=== PATIENT | male | born 1990 | race Caucasian/White ===

== ENCOUNTER 2020-02-06 12:24 | Emergency (ER) | payer BC, SELFPAY ==
[2020-02-06 12:27] VITALS: BP 138/89; PULSE 95; RESP 16; O2SAT 99; BMI 34.3
[2020-02-06 12:39] VITALS: BP 154/92; PULSE 90; RESP 12; O2SAT 99
[2020-02-06 12:40] VITALS: O2SAT 99
--- NOTE | 2020-02-06 12:45 | XRR_ITS ---
PROCEDURE INFORMATION: Exam: XR Chest, 1 View Exam date and time: 02/06/2020 12:47 PM Age: 29 years old Clinical indication: Chest pain; Additional info: Cp TECHNIQUE: Imaging protocol: XR of the chest Views: 1 view. COMPARISON: No relevant prior studies available. FINDINGS: Lungs: No acute airspace disease. Chronic granulomatous disease. Pleural space: No pleural effusion. Heart/Mediastinum: No cardiomegaly. Bones/joints: Unremarkable. XR/XR chest 1V portable [id number] IMPRESSION: No acute airspace or pleural disease.
--- NOTE | 2020-02-06 12:45 | ECG_ITS ---
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 Measurements Intervals [place] Rate: 89 P: 44 SD: 173 QRS: 32 QRSD: 106 T: 29 QT: 365 QTc: 444 Interpretive Statements SINUS RHYTHM No previous ECG available for comparison Electronically Signed On 02-07-2020 9:25:28 GAS LEAK TESTER by Lucila Loja M.D. [id number]
--- NOTE | 2020-02-06 12:45 | CTR_ITS ---
PROCEDURE INFORMATION: Exam: CT Head Without Contrast Exam date and time: 02/06/2020 12:47 PM Age: 29 years old Clinical indication: Syncope and collapse TECHNIQUE: Imaging protocol: Computed tomography of the head without contrast. Radiation optimization: All CT scans at this facility use at least one of these dose optimization techniques: automated exposure control; mA and/or kV adjustment per patient size (includes targeted exams where dose is matched to clinical indication); or iterative reconstruction. COMPARISON: No relevant prior studies available. RADIATION DOSE METRICS: Total DLP (mGy-cm): 758.68 FINDINGS: Brain: No acute post-traumatic brain injury. Mild symmetric prominence of the cortical sulci relative to the stated patient age. Normal ho-white matter differentiation. No acute cortical infarct, mass effect, or intracranial hemorrhage. Cerebral ventricles: normal configuration of the ventricles. Bones/joints: No acute calvarial pathology. Paranasal sinuses: Opacification of a right ethmoidal air cell. Mastoid air cells: No mastoid effusion. Soft tissues: No significant scalp hematoma. CT/CT head wo con* [id number] IMPRESSION: No acute post-traumatic brain injury. Radiation Dose CTDIVOL = (mGy): DLP = 758.68 (mGy-cm)
[2020-02-06 12:48] LABS: Glucose Point of Care 78 mg/dL (70-110)
[2020-02-06] MEDS: sodium chloride 0.9% 1,000 ML 999 ML IV (12:53)
[2020-02-06] MEDS: fentaNYL 50 mcg/mL INJ 2mL 100 MCG IVP (12:53)
[2020-02-06] MEDS: ondansetron 2 mg/ML SDV 2 mL 4 MG IVP (12:53)
[2020-02-06] MEDS: fentaNYL 50 mcg/mL INJ 2mL IVP (13:08)
--- NOTE | 2020-02-06 13:30 | ED_ITS ---
HPI - Syncope General: Chief Complaint: Syncope Stated Complaint: SYNCOPE Time Seen by Provider: 02/06/20 12:26 History of Present Illness: HPI narrative: 29-year-old healthy male presents after a syncopal episode. 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 He sat down, and then lie down, but upon attempting to get up after hydration, had a syncopal episode. He evidently maintained breathing and a pulse the entire time. As he came around he was slightly confused, and his headache was worse. He presents with a headache, some reproducible chest discomfort, and fatigue. There is no point was noticed any seizure activity. MD complaint: loss of consciousness Onset (ago): minute(s) -: second(s) Description of event: other Prodromal symptoms: headache and lightheaded Witnessed: Yes - by Bystander Context: during exertion Injuries sustained associated with event: none Associated symptoms: Reports chest pain, headache(s), lightheadedness and nausea; Deny fever(s) or short of breath Review of Systems Const: Denies: fever(s) Eyes: Denies: change in vision or blurry vision ENMT: Denies: odynophagia, dental pain, change in hearing, post nasal drip or sinus pain Card: Reports: chest pain and lightheadedness Resp: Denies: dyspnea or wheezing GI: Reports: nausea : Denies: difficulty urinating, dysuria or hematuria Musc: Denies: neck pain, back pain, joint redness or joint warmth Skin/Breast: Denies: rash or erythema Neuro: Reports: headache(s) Psych: Denies: anxiety Physical Exam Const: COMMON NORMALS: alert GENERAL APPEARANCE: well developed ORIENTATION/CONSCIOUSNESS: Yes oriented to person, Yes oriented to place and Yes oriented to time HENMT: COMMON NORMALS: normocephalic, external ears normal and Normal external nose present HEAD & SCALP: normocephalic FACE & SINUS: normal facial exam NOSE: Normal external nose present and No nasal discharge present EXTERNAL EAR: Yes external ears normal TEETH & GINGIVA: no abnormal tooth and associated gingiva Eye: COMMON NORMALS: Equal, round and reactive pupils present, EOMs intact bilaterally and conjunctivae normal EYELID: eyelids normal CONJUNCTIVA: Yes conjunctivae normal PUPIL: Yes Equal, round and reactive pupils present Neck/C-Spine: GENERAL: No tracheal deviation Chest: COMMONS NORMALS: normal inspection of the chest CHEST: Yes tenderness Resp: COMMON NORMALS: clear to auscultation bilaterally EFFORT & INSPECTION: No tachypneic, No respiratory distress, No retractions, No uses accessory muscles and No tracheal deviation AUSCULTATION: clear to auscultation bilaterally, no rhonchi, no wheezes and lung sounds not diminished Cardio: COMMON NORMALS: regular rate and regular rhythm RATE: regular rate RHYTHM: regular rhythm HEART SOUNDS: no murmurs PERIPHERAL PULSES: radial pulses present GI: INSPECTION: No abdominal distension AUSCULTATION: No Hyperactive bowel sounds present and No Hypoactive bowel sounds present PALPATION: No Guarding due to palpation present (GI) and No Rigid due to palpation PERCUSSION: no dullness to percussion and no tympanic to percussion Neuro: SENSORIUM/ORIENTATION: Yes alert, Yes oriented to person, Yes oriented to place and Yes oriented to time CRANIAL NERVES: Yes CN normal except as noted SPEECH: speech normal MOTOR EXAM: Motor abnormalities not present Psych: COMMON NORMALS: mental status grossly normal Skin: COMMON NORMALS: no rashes or lesions noted GENERAL SKIN EXAM: no rashes or lesions noted Course Vital Signs: Vital signs: Vital Signs Pulse Rate 74 02/06/20 14:00 Respiratory Rate 15 02/06/20 14:00 Blood Pressure 137/87 02/06/20 14:00 Pulse Oximetry 100 02/06/20 14:00 MDM - Syncope MDM Narrative: Medical decision making narrative: Syncope x1. Headache following. Headache improved down to 1 now after small dose of fentanyl, and some Toradol. Head CT is negative. EKG is normal with a normal axis, and a normal rate of 90. Troponin is 9. His bicarbonate level however is 18. His CK is minimally elevated. He is received 2 L of fluid here and is feeling better. He knows to return for any concerning symptoms. Lab Data: Labs: Lab Results 02/06/20 02/06/20 02/06/20 Range/Units 12:35 12:35 12:35 WBC 10.7 H (4.0-10.0) 10^3/ uL RBC 5.47 H (4.1-5.3) 10^6/u L Hgb 15.8 (11.7-16.6) g/dL Hct 46.0 (42.0-52.0) % MCV 84.1 (80-94) fL MCH 28.9 (28.0-34.0) pg MCHC 34.3 (30.0-36.0) g/dL RDW 11.5 L (12.1-15.1) % Plt Count 306 (130-400) 10^3/c mm MPV 11.1 H (7.4-10.4) fL Neut % (Auto) 71.1 % Lymph % (Auto) 20.8 % [place] % (Auto) 6.6 % Eos % (Auto) 0.3 % Baso % (Auto) 0.5 % Neut # (Auto) 7.65 (1.8-7.7) 10^3/u L Lymph # (Auto) 2.2 (0.8-4.8) 10^3/u L [place] # (Auto) 0.7 (0.2-0.9) 10^3/u L Eos # (Auto) 0.0 (0.0-0.8) 10^3/u L Baso # (Auto) 0.1 (0.0-0.1) 10^3/u L Nucleated RBC % (a uto) 0 % Nucleated RBCs # 0.0 /100WBC PT 12.90 (12.1-14.9) SECO NDS INR 0.94 (0.8-1.2) Sodium 140 (136-145) mmol/L Potassium 4.0 (3.5-5.1) mmol/L Chloride 101 (98-107) mmol/L Carbon Dioxide 18 L (22-29) mmol/L Anion Gap 25.0 H (5-19) BUN 13 (6-20) mg/dL Creatinine 1.0 (0.7-1.2) mg/dL GFR Calculation 89.0 L (90-130) mL/min Glucose 98 (65-115) mg/dL POC Glucose (70-110) mg/dL Calculated Osmolal ity 290 (285-295) mOsm/k g Calcium 10.3 (8.5-10.5) mg/dL Total Bilirubin 0.5 (0.15-1.2) mg/dL AST 25 (0-40) U/L ALT 18 (0-41) U/L Alkaline Phosphata se 89 (40-130) IU/L Creatine Kinase 319 H (39-308) U/L Troponin T Baselin e (0-15) ng/L Total Protein 7.1 (6.6-8.7) g/dL Albumin 4.9 (3.5-5.2) g/dL Globulin 2.2 (1.3-4.6) g/dL 02/06/20 02/06/20 Range/Units 12:35 12:44 WBC (4.0-10.0) 10^3/ uL RBC (4.1-5.3) 10^6/u L Hgb (11.7-16.6) g/dL Hct (42.0-52.0) % MCV (80-94) fL MCH (28.0-34.0) pg MCHC (30.0-36.0) g/dL RDW (12.1-15.1) % Plt Count (130-400) 10^3/c mm MPV (7.4-10.4) fL Neut % (Auto) % Lymph % (Auto) % [place] % (Auto) % Eos % (Auto) % Baso % (Auto) % Neut # (Auto) (1.8-7.7) 10^3/u L Lymph # (Auto) (0.8-4.8) 10^3/u L [place] # (Auto) (0.2-0.9) 10^3/u L Eos # (Auto) (0.0-0.8) 10^3/u L Baso # (Auto) (0.0-0.1) 10^3/u L Nucleated RBC % (a uto) % Nucleated RBCs # /100WBC PT (12.1-14.9) SECO NDS INR (0.8-1.2) Sodium (136-145) mmol/L Potassium (3.5-5.1) mmol/L Chloride (98-107) mmol/L Carbon Dioxide (22-29) mmol/L Anion Gap (5-19) BUN (6-20) mg/dL Creatinine (0.7-1.2) mg/dL GFR Calculation (90-130) mL/min Glucose (65-115) mg/dL POC Glucose 78 (70-110) mg/dL Calculated Osmolal ity (285-295) mOsm/k g Calcium (8.5-10.5) mg/dL Total Bilirubin (0.15-1.2) mg/dL AST (0-40) U/L ALT (0-41) U/L Alkaline Phosphata se (40-130) IU/L Creatine Kinase (39-308) U/L Troponin T Baselin e 9 (0-15) ng/L Total Protein (6.6-8.7) g/dL Albumin (3.5-5.2) g/dL Globulin (1.3-4.6) g/dL Discharge Plan Discharge Patient Disposition: Home Clinical Impression: Dehydration Syncope Qualifiers: Syncope type: unspecified Qualified Code(s): R55 - Syncope and collapse Rhabdomyolysis Qualifiers: Rhabdomyolysis type: non-traumatic Qualified Code(s): M62.82 - Rhabdomyolysis Condition: Stable Discharge Orders: Discharge Order (Routine); Ordered 02/06/20 Ordered By: Russell Evans Referrals: Wander Ac DO [Primary Care Provider] - Discharge Diet: Advance as tolerated Discharge Activity: Limit activity as instructed Patient Instructions: Dehydration (ED), Rhabdomyolysis (ED) Activity Restrictions/Additional Instructions: No strenuous activity next 48 hours. Make sure you are getting plenty of clear liquids return for worsening headache or muscle aches, vomiting, repeated episodes of syncope or passing out, mental status changes, fever greater than 100, other concerning symptoms. Stand Alone Forms: Work/School Release Coding Level of Care Code ED Engine Cowling Installer for Jimy Fwd Exam Comprehensive
[2020-02-06 13:39] VITALS: BP 130/76; PULSE 84; RESP 16; O2SAT 98
[2020-02-06 13:42] LABS: Basophils # 0.1 10^3/uL (0.0-0.1); Basophils % 0.5 %; Eosinophils % 0.3 %; Hemoglobin 15.8 g/dL (11.7-16.6); Lymphocytes # 2.2 10^3/uL (0.8-4.8); Lymphocytes % 20.8 %; Mean Corpuscular HGB Conc 34.3 g/dL (30.0-36.0); Mean Corpuscular Hemoglobin 28.9 pg (28.0-34.0); Mean Corpuscular Volume 84.1 fL (80-94); Mean Platelet Volume 11.1 fL (7.4-10.4); Monocytes # 0.7 10^3/uL (0.2-0.9); Monocytes % 6.6 %; Neutrophils # 7.65 10^3/uL (1.8-7.7); Neutrophils % 71.1 %; Nucleated Red Blood Cells % 0 %; Platelet Count 306 10^3/cmm (130-400); Red Blood Count 5.47 10^6/uL (4.1-5.3); Red Cell Distribution Width 11.5 % (12.1-15.1); White Blood Count 10.7 10^3/uL (4.0-10.0)
[2020-02-06 13:46] LABS: INR 0.94 (0.8-1.2)
[2020-02-06 13:56] LABS: Alanine Aminotransferase 18 U/L (0-41); Albumin Level 4.9 g/dL (3.5-5.2); Alkaline Phosphatase 89 IU/L (40-130); Aspartate Amino Transferase 25 U/L (0-40); Blood Urea Nitrogen 13 mg/dL (6-20); Calcium 10.3 mg/dL (8.5-10.5); Carbon Dioxide 18 mmol/L (22-29); Chloride 101 mmol/L (98-107); Creatine Phosphokinase 319 U/L (39-308); Globulin 2.2 g/dL (1.3-4.6); Glucose 98 mg/dL (65-115); Osmolality Calculated 290 mOsm/kg (285-295); Sodium 140 mmol/L (136-145); Total Bilirubin 0.5 mg/dL (0.15-1.2); Total Protein 7.1 g/dL (6.6-8.7)
[2020-02-06 13:58] LABS: Troponin(5th) Baseline 9 ng/L (0-15)
[2020-02-06 14:00] VITALS: BP 137/87; PULSE 74; RESP 15; O2SAT 100
[2020-02-06] MEDS: ketorolac 30 mg/mL INJ IVP (14:04)
[2020-02-06 15:24] VITALS: BP 137/87; PULSE 74; RESP 15; O2SAT 100
== END 2020-02-06 15:25 | disposition home or self-care (01) ==
PROVIDERS: Emergency Provider Emergency Medicine; PCP Family Medicine
DX: R55 Syncope and collapse (principal); M62.82 Rhabdomyolysis; E86.0 Dehydration
CPT/HCPCS: 12345; 36416; 70450; 71045; 80053; 82550; 82962; 84484; 85025; 85610; 93005; 96361; 96374; 96375; 99284; J1885; J2405; J3010; J7030

== ENCOUNTER → 2021-08-31 13:10 | Outpatient (BNVA) | payer BC, MEDICAID, SELFPAY | PROVIDERS: PCP Family Medicine; Visit Provider Family Medicine | DX: Z00.00 Encounter for general adult medical examination without abnormal findings (principal); Z51.81 Encounter for therapeutic drug level monitoring; Z13.220 Encounter for screening for lipoid disorders; R10.11 Right upper quadrant pain | CPT/HCPCS: 80053; 80061; 83690; 85025 ==

== ENCOUNTER → 2021-09-21 16:26 | Outpatient (BNVA) | payer BC, MEDICAID, SELFPAY | PROVIDERS: PCP Family Medicine; Visit Provider Family Medicine | DX: Z00.00 Encounter for general adult medical examination without abnormal findings (principal); Z51.81 Encounter for therapeutic drug level monitoring; Z13.220 Encounter for screening for lipoid disorders; R10.11 Right upper quadrant pain | CPT/HCPCS: 80053; 80061; 83690; 85025 ==

== ENCOUNTER 2021-09-28 08:58 | Outpatient (CLI) | payer BC, MEDICAID, SELFPAY ==
--- NOTE | 2021-09-28 09:07 | US_ITS ---
WS: [id number] RIGHT UPPER QUADRANT ULTRASOUND HISTORY: RUQ ABDOMINAL PAIN COMPARISON: None available. Liver: 16.3 cm in length. Normal size liver. No bile duct dilatation or mass. Portal Vein: Normal hepatopetal flow with monophasic waveform. Gallbladder: Normally distended gallbladder with no stones or wall thickening. CBD: 0.2 cm Pancreas: Normal size and echogenicity. Right kidney: 11.8 cm in length. Normal size and echogenicity. No hydronephrosis or mass. Aorta and IVC: Unremarkable abdominal aorta and IVC. No ascites. US/US gall bladder [id number] IMPRESSION: Normal RIGHT upper quadrant ultrasound.
== END 2021-09-28 08:59 | disposition home or self-care (01) ==
LOC: RAD 08:58
PROVIDERS: PCP Family Medicine; Visit Provider Family Medicine
DX: R10.11 Right upper quadrant pain (principal)
CPT/HCPCS: 76705

== ENCOUNTER 2024-01-19 21:04 | Emergency (ER) | payer BC, SELFPAY ==
--- NOTE | 2024-01-19 21:05 | ECG_ITS ---
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
[2024-01-19 21:06] VITALS: BP 144/88; PULSE 83; RESP 16; TEMP 36.8; O2SAT 96
--- NOTE | 2024-01-19 21:53 | XRR_ITS ---
PROCEDURE INFORMATION: Exam: XR Chest Exam date and time: 01/19/2024 10:04 PM Age: 33 years old Clinical indication: Chest pressure; Patient HX: C/O chest pain TECHNIQUE: Imaging protocol: Radiologic exam of the chest. Views: 1 view. COMPARISON: CR XR chest 1V portable [id number] 02/06/2020 1:02 PM FINDINGS: Lungs: Clear, symmetrically inflated lungs. Pleural spaces: No pleural effusion. No pneumothorax. Heart/Mediastinum: Cardiac silhouette is normal in size for technique. Bones/joints: Age appropriate. XR/XR chest 1V portable [id number] IMPRESSION: No acute cardiopulmonary abnormality.
[2024-01-19 22:21] LABS: Basophils # 0.1 10^3/uL (0.0-0.1); Basophils % 0.6 %; Eosinophils # 0.1 10^3/uL (0.0-0.8); Eosinophils % 1.2 %; Hematocrit 45.4 % (37-53); Lymphocytes # 3.7 10^3/uL (0.8-4.8); Lymphocytes % 44.7 %; Mean Corpuscular HGB Conc 33.9 g/dL (30-55); Mean Corpuscular Hemoglobin 29.1 pg (27-33); Mean Corpuscular Volume 85.8 fl (82-101); Mean Platelet Volume 10.2 fL (7.4-10.4); Monocytes # 0.9 10^3/uL (0.2-0.9); Monocytes % 10.5 %; Neutrophils # 3.56 10^3/uL (1.8-7.7); Neutrophils % 42.6 %; Nucleated Red Blood Cells % 0 %; Platelet Count 248 10^3/cmm (157-399); Red Blood Count 5.29 10^6/uL (3.85-5.65); Red Cell Distribution Width 11.9 % (12.1-15.1); White Blood Count 8.35 10^3/uL (3.29-11.43)
[2024-01-19] MEDS: ketorolac 30 mg/mL INJ IVP (22:24)
[2024-01-19 22:26] VITALS: BP 155/98; PULSE 70; RESP 20; O2SAT 98
[2024-01-19 22:40] LABS: D Dimer 0.35 ug/mLFEU (0-0.59)
[2024-01-19 22:44] LABS: Troponin(5th) Baseline < 6 ng/L (0-15)
[2024-01-19 23:11] VITALS: BP 147/90; PULSE 66; RESP 15; O2SAT 98
[2024-01-19 23:34] LABS: Alanine Aminotransferase 20 U/L (0-41); Albumin Level 4.2 g/dL (3.5-5.2); Alkaline Phosphatase 91 U/L (40-130); Anion Gap 10.9 (5-19); Aspartate Amino Transferase 21 U/L (0-40); Blood Urea Nitrogen 14 mg/dL (6-20); Calcium 8.6 mg/dL (8.5-10.5); Carbon Dioxide 26 mmol/L (22-29); Chloride 103 mmol/L (98-107); Creatinine Clr Calc Pharmacy 166.1467; Globulin 2.3 g/dL (1.3-4.6); Glomerular Filtration Rate 97.8 mL/min (90-130); Glucose 110 mg/dL (65-115); NT Pro B Type Natriuretic Pept < 36 pg/mL (0-125); Osmolality Calculated 283 mOsm/kg (285-295); Potassium 3.9 mmol/L (3.5-5.1); Sodium 136 mmol/L (136-145); Total Bilirubin 0.3 mg/dL (0.15-1.2); Total Protein 6.5 g/dL (6.6-8.7)
[2024-01-19 23:56] VITALS: BP 146/94; PULSE 62; RESP 22; O2SAT 98
--- NOTE | 2024-01-20 01:18 | ED_ITS ---
HPI - Chest Pain 2 General: Chief Complaint: Chest Pain Stated Complaint: CP Time Seen by Provider: 01/19/24 21:14 History of Present Illness: This patient is a 33-year-old white male who presents to the emergency department with chest pain. He states he said the left upper sharp chest discomfort intermittently for the past 2 weeks. States it lasts anywhere from a few minutes to up to 25 minutes which happened tonight. Occasional shortness of breath. Patient states he has been under a lot of stress. 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 He does have an appointment to see his primary care physician about the symptoms on Saturday. He has no chronic medical problems. He does not smoke. Associated symptoms: Reports dyspnea Related Data Home Medications Medication Instructions Recorded Confirmed No Known Home Medications 01/17/23 09/16/23 Allergies Allergy/AdvReac Type Severity Reaction Status Date / Time No Known Allergies Allergy Verified 01/19/24 21:11 Review of Systems 2 General: Reports: 10 or more systems reviewed and unremarkable except in HPI and below Card: Reports: chest pain Resp: Reports: dyspnea PFSH ED 2 PFSH: Medical History Generalized anxiety disorder Surgical History History of vasectomy Hx of tonsillectomy and adenoidectomy Family History Other Cancer Diabetes Generalized anxiety disorder Social History Smoking and tobacco/nicotine status: former use of tobacco/nicotine Quit status (tobacco/nicotine): has quit using Former quit date comment: Quit chewing in October 2022 Alcohol intake: current Alcohol intake frequency: holidays/special occasions only Substance/Drug Use: never Physical Exam 2 Const: COMMON NORMALS: no acute distress, patient oriented x3 and no limitations GENERAL APPEARANCE: cooperative and comfortable HENMT: COMMON NORMALS: normocephalic, atraumatic, Normal nasal mucous membranes and turbinates present, moist oral mucous membranes and oropharynx normal HEAD & SCALP: normal to inspection, normocephalic and atraumatic F JAZMYN & SINUS: normal facial exam NOSE: Normal nasal mucous membranes and turbinates present Eye: COMMON NORMALS: Equal, round and reactive pupils present, EOMs intact bilaterally and conjunctivae normal GENERAL EYE: appearance normal, both eyes and all related structures CONJUNCTIVA: Yes conjunctivae normal PUPIL: Yes Equal, round and reactive pupils present Neck/C-Spine: COMMON NORMALS: supple and no JVD Chest: COMMONS NORMALS: normal inspection of the chest Resp: COMMON NORMALS: normal respiratory effort and clear to auscultation bilaterally AUSCULTATION: clear to auscultation bilaterally Cardio: COMMON NORMALS: no JVD, regular rate, regular rhythm, No gallops present (Cardio), No murmurs present (Cardio) and No rub (Cardio) RATE: r egular rate RHYTHM: regular rhythm GI: COMMON NORMALS: Normal to inspection, nondistended, normoactive bowel sounds present, Soft to palpation and non-tender AUSCULTATION: Yes normoactive bowel sounds PALPATION: Yes Soft to palpation : COMMON NORMALS: Yes no CVA tenderness BLADDER/KIDNEY EXAM: Yes no CVA tenderness Back/Pelvis: COMMON NORMALS: no CVA tenderness and thoracic and lumbar spine normal to inspection Extremity: COMMON NORMALS: normal to inspection Neuro: COMMON NORMALS: patient oriented x3 and CN's II-XII intact bilaterally Psych: COMMON NORMALS: mental status grossly normal, Normal thought process present and cooperative THOUGHT PROCESS: Normal thought process present Skin: COMMON NORMALS: no rashes or lesions noted, turgor normal and no jaundice GENERAL SKIN EXAM: no rashes or lesions noted and turgor normal Course 2 Vital Signs: Vital signs: Vital Signs Temperature 98.3 F 01/19/24 21:06 Pulse Rate 62 01/19/24 23:56 Respiratory Rate 22 H 01/19/24 23:56 Blood Pressure 146/94 01/19/24 23:56 Pulse Oximetry 98 01/19/24 23:56 Oxygen Delivery Me thod Room Air 01/19/24 23:56 MDM - Chest Pain Medical Decision Making EKG revealed normal sinus rhythm with no ST segment abnormalities. Chest x-ray was normal. CBC and CMP were normal. BNP was less than 36. D-dimer was 0.35. Troponin was less than 6. Patient was given Toradol IV. He states that helped somewhat. Still has some mild discomfort. He was discharged in stable condition recommended he follow-up with his primary care provider on Saturday as previously scheduled. I think this is noncardiac chest pain. Lab Data 01/19/24 22:14 01/19/24 23:01 Radiology Impressions Chest X-Ray 01/19/24 21:53 IMPRESSION: No acute cardiopulmonary abnormality. Laboratory Results WBC 8.35 10^3/uL (3.29-11.43) 01/19/24 22:14 RBC 5.29 10^6/uL (3.85-5.65) 01/19/24 22:14 Hgb 15.40 g/dL (11.27-16.99) 01/19/24 22:14 Hct 45.4 % (37-53) 01/19/24 22:14 MCV 85.8 fl (82-101) 01/19/24 22:14 MCH 29.1 pg (27-33) 01/19/24 22:14 MCHC 33.9 g/dL (30-55) 01/19/24 22:14 RDW 11.9 % (12.1-15.1) L 01/19/24 22:14 Plt Count 248 10^3/cmm (157-399) 01/19/24 22:14 MPV 10.2 fL (7.4-10.4) 01/19/24 22:14 Neut % (Auto) 42.6 % 01/19/24 22:14 Lymph % (Auto) 44.7 % 01/19/24 22:14 [place] % (Auto) 10.5 % 01/19/24 22:14 Eos % (Auto) 1.2 % 01/19/24 22:14 Baso % (Auto) 0.6 % 01/19/24 22:14 Neut # (Auto) 3.56 10^3/uL (1.8-7.7) 01/19/24 22:14 Lymph # (Auto) 3.7 10^3/uL (0.8-4.8) 01/19/24 22:14 [place] # (Auto) 0.9 10^3/uL (0.2-0.9) 01/19/24 22:14 Eos # (Auto) 0.1 10^3/uL (0.0-0.8) 01/19/24 22:14 Baso # (Auto) 0.1 10^3/uL (0.0-0.1) 01/19/24 22:14 Nucleated RBC % (auto) 0 % 01/19/24 22:14 Nucleated RBCs # 0.0 /100WBC 01/19/24 22:14 D-Dimer 0.35 ug/mLFEU (0-0.59) 01/19/24 22:14 Sodium 136 mmol/L (136-145) 01/19/24 23:01 Potassium 3.9 mmol/L (3.5-5.1) 01/19/24 23:01 Chloride 103 mmol/L (98-107) 01/19/24 23:01 Carbon Dioxide 26 mmol/L (22-29) 01/19/24 23:01 Anion Gap 10.9 (5-19) 01/19/24 23:01 BUN 14 mg/dL (6-20) 01/19/24 23:01 Creatinine 0.9 mg/dL (0.7-1.2) 01/19/24 23:01 GFR Calculation 97.8 mL/min (90-130) 01/19/24 23:01 Glucose 110 mg/dL (65-115) 01/19/24 23:01 Calculated Osmolality 283 mOsm/kg (285-295) L 01/19/24 23:01 Calcium 8.6 mg/dL (8.5-10.5) 01/19/24 23:01 Total Bilirubin 0.3 mg/dL (0.15-1.2) 01/19/24 23:01 AST 21 U/L (0-40) 01/19/24 23:01 ALT 20 U/L (0-41) 01/19/24 23:01 Alkaline Phosphatase 91 U/L (40-130) 01/19/24 23:01 Troponin T Baseline < 6 ng/L (0-15) 01/19/24 22:14 NT-Pro-B Natriuret Pep < 36 pg/mL (0-125) 01/19/24 23:01 Total Protein 6.5 g/dL (6.6-8.7) L 01/19/24 23:01 Albumin 4.2 g/dL (3.5-5.2) 01/19/24 23:01 Globulin 2.3 g/dL (1.3-4.6) 01/19/24 23:01 All radiology interpretation(s) finalized by discharge Discharge Plan Discharge Patient Disposition: Home Clinical Impression: Chest pain Qualifiers: Chest pain type: unspecified Qualified Code(s): R07.9 - Chest pain, unspecified Condition: Stable Prescriptions: No Action No Known Home Medications Discharge Orders: Discharge ED (Routine); Ordered 01/19/24 Ordered By: Leno Calles Referrals: Wander Ac DO [Primary Care Provider] - Patient Instructions: Chest Pain (DC) Coding Level of Care Code ED Actuarial Technician for Jimy Proctor
== END 2024-01-20 00:14 | disposition home or self-care (01) ==
PROVIDERS: Emergency Provider Emergency Medicine; PCP Family Medicine
DX: R07.9 Chest pain, unspecified (principal); Z87.891 Personal history of nicotine dependence
CPT/HCPCS: 71045; 80053; 83880; 84484; 85025; 85378; 93005; 96374; 99285; J1885